=== PATIENT | female | born 1990 | race Hispanic/Latino ===

== ENCOUNTER 2021-03-24 12:22 | Observation (INO) | payer MEDICAID ==
[~2021-03-24] VITALS: Ht 165.1 cm; Wt 124.7 kg
[~2021-03-24 12:22] MED LIST: OMEG-116 PO; PREN1TAB80 PO
[2021-03-24 13:53] LABS: APPEARANCE,URINE Clear (CLEAR); BILIRUBIN,URINE Negative (NEGATIVE); COLOR,URINE Yellow (YELLOW); GLUCOSE, URINE (UA) Negative (NEGATIVE); KETONES,URINE Negative (NEGATIVE); LEUKOCYTE ESTERASE ,URINE Negative (NEGATIVE); NITRATE,URINE Negative (NEGATIVE); OCCULT BLOOD,URINE Trace (NEGATIVE); PH,URINE 6.5 (5.0-8.0); PROTEIN,URINE Negative (NEGATIVE); UROBILINOGEN,URINE 0.2 mg/dL (0.2-1.0)
[2021-03-24 13:55] LABS: BACTERIA,URINE Rare /HPF (None Seen); RBC,URINE 0-1 /HPF (0-1); SQUAMOUS EPITHELIAL CELL,UR Rare /HPF (0-2); WBC,URINE 0-1 /HPF (0-1)
[2021-03-24 14:25] LABS: BASOPHILS % (AUTO) 0.4 % (0.0-5.0); EOSINOPHILS % (AUTO) 0.6 % (0.0-8.0); HEMATOCRIT 36.4 % (36-48); LYMPHOCYTES % (AUTO) 26.8 % (21.0-51.0); MEAN CORPUSCULAR HGB CONC 34.9 g/dL (32.0-36.0); MEAN CORPUSCULAR VOLUME 85.8 fL (79-99); MONOCYTES % (AUTO) 7.6 % (3.0-13.0); NEUTROPHILS % (AUTO) 64.2 % (40.0-77.0); PLATELET COUNT (AUTO) 232 K/uL (130-400); RED BLOOD CELL COUNT(AUTO) 4.24 MIL/uL (4.00-5.50); WHITE BLOOD COUNT (AUTO) 6.9 K/uL (4.8-10.8)
[2021-03-24 14:31] LABS: CREATININE 0.6 mg/dL (0.5-1.5); INR 0.93 (0.85-1.15); PROTHROMBIN TIME 10.2 SEC (9.6-11.6)
[2021-03-24 14:33] LABS: PARTIAL THROMBOPLASTIN TIME 24.1 SEC (26.3-35.5)
[2021-03-24 14:37] LABS: ALBUMIN 2.8 g/dL (3.5-5.0); BILIRUBIN,TOTAL 0.2 mg/dL (0.2-1.0); TOTAL PROTEIN, SERUM 6.7 g/dL (6.0-8.3); URIC ACID 3.4 mg/dL (2.6-7.2)
== END 2021-03-24 15:15 | disposition home or self-care (01) ==
LOC: LDH 12:22
PROVIDERS: ADMIT Obstetrics & Gynecology; ATTEND Obstetrics & Gynecology
DX: O26.893 Other specified pregnancy related conditions, third trimester (principal); R03.0 Elevated blood-pressure reading, without diagnosis of hypertension; R60.0 Localized edema; Z3A.36 36 weeks gestation of pregnancy
CPT/HCPCS: 36415; 76805; 80053; 81001; 84550; 85025; 85384; 85610; 85730; A4351; G0378 ×3; G0379

== ENCOUNTER 2021-04-02 13:42 | Inpatient (IN) | payer MEDICAID ==
[~2021-04-02] VITALS: Ht 165.1 cm; Wt 122.5 kg
[2021-04-02 14:16] LABS: APPEARANCE,URINE Clear (CLEAR); BILIRUBIN,URINE Negative (NEGATIVE); COLOR,URINE Yellow (YELLOW); GLUCOSE, URINE (UA) Negative (NEGATIVE); KETONES,URINE Negative (NEGATIVE); LEUKOCYTE ESTERASE ,URINE Negative (NEGATIVE); NITRATE,URINE Negative (NEGATIVE); OCCULT BLOOD,URINE Negative (NEGATIVE); PH,URINE 6.5 (5.0-8.0); PROTEIN,URINE Trace mg/dL (NEGATIVE); UROBILINOGEN,URINE 0.2 mg/dL (0.2-1.0)
[2021-04-02 14:33] LABS: BACTERIA,URINE Few /HPF (None Seen); RBC,URINE 0-1 /HPF (0-1); SQUAMOUS EPITHELIAL CELL,UR Moderate /HPF (0-2); WBC,URINE 0-1 /HPF (0-1)
[2021-04-02] MEDS: LACTATED RINGERS 1000ML 1,000 ML IV SCH ×2 (15:00→23:42)
[2021-04-02] MEDS ORDERED: METOCLOPRAMIDE 10 MG/2 ML VIAL IVP PRN (15:00)
[2021-04-02] MEDS ORDERED: CALDOLOR 800MG+NS 250ML 250 ML IV PRN (15:00)
[2021-04-02] MEDS ORDERED: CEFAZOLIN SODIUM 1 GM VIAL IVP PRN (15:00)
[2021-04-02 15:13] LABS: HEMATOCRIT 34.4 % (36-48); MEAN CORPUSCULAR HEMOGLOBIN 29.9 pg (27.0-33.0); MEAN CORPUSCULAR HGB CONC 33.1 g/dL (32.0-36.0); MEAN CORPUSCULAR VOLUME 90.3 fL (79-99); RED BLOOD CELL COUNT(AUTO) 3.81 MIL/uL (4.00-5.50); WHITE BLOOD COUNT (AUTO) 5.8 K/uL (4.8-10.8)
[2021-04-02 15:25] LABS: CREATININE 0.7 mg/dL (0.5-1.5)
[2021-04-02 15:26] LABS: INR 0.94 (0.85-1.15); PROTHROMBIN TIME 10.3 SEC (9.6-11.6)
[2021-04-02 15:30] LABS: ALBUMIN 2.6 g/dL (3.5-5.0); BILIRUBIN,TOTAL 0.2 mg/dL (0.2-1.0); TOTAL PROTEIN, SERUM 6.2 g/dL (6.0-8.3)
[2021-04-02] MEDS ORDERED: MORPHINE PF 100MG/10ML AMP IV ONE (16:59)
[2021-04-02] MEDS ORDERED: FENTANYL CITRATE PF 50 MCG/1 ML 2ML VIAL ONE ×2 (16:59→17:32)
[2021-04-02] MEDS ORDERED: ONDANSETRON 4MG INJ ONE (17:30)
[2021-04-02] MEDS ORDERED: METOCLOPRAMIDE 10 MG/2 ML VIAL ONE (17:56)
[2021-04-02] MEDS ORDERED: PHENYLEPHRINE HCL 10 MG/ML 1ML VIAL IV ONE (17:56)
[2021-04-02] MEDS ORDERED: OXYTOCIN-LR 20 UNITS/1000 ML 1,000 ML IV PRN (18:00)
[2021-04-02] MEDS ORDERED: MEPERIDINE-PF 75 MG/ML SYG IM PRN (18:00)
[2021-04-02] MEDS ORDERED: PROMETHAZINE HCL 25 MG/ML 1ML AMPULE IM PRN (18:00)
[2021-04-02] MEDS ORDERED: DEXTROSE 5 %-0.45 % NACL 1,000 ML IV PRN (18:00)
[2021-04-02] MEDS ORDERED: 0.9%NACL 10ML VIAL IVP PRN (18:00)
[2021-04-02] MEDS ORDERED: ONDANSETRON 4MG INJ IVP PRN (19:30)
[2021-04-02] MEDS ORDERED: DiphenhydrAMINE HCL 50 MG/ML VIAL IVP PRN (19:30)
[2021-04-02] MEDS ORDERED: EPHEDRINE SULFATE 50 MG/ML AMPULE IVP PRN (19:30)
[2021-04-02] MEDS ORDERED: NALOXONE HCL 0.4 MG/1 ML ML IVP PRN ×3 (19:30)
[2021-04-02] MEDS ORDERED: LORATADINE 10 MG TABLET PO PRN (19:30)
[2021-04-02 20:20] VITALS: BP 136/88
[2021-04-02 22:21] VITALS: BP 123/66
[2021-04-02 22:55] VITALS: BP 137/83
[2021-04-03 01:04] LABS: RAPID PLASMA REAGIN NONREACTIVE (NONREACTIVE)
[2021-04-03] MEDS: CALDOLOR 800MG+NS 250ML 250 ML IV SCH ×2 (02:01→10:26)
[2021-04-03 02:43] VITALS: BP 129/71
[2021-04-03] MEDS ORDERED: MEASLES/MUMPS/RUBELLA VACCINE, LIVE 0.5 ML/VIAL SQ ONE (06:30)
[2021-04-03] MEDS ORDERED: DIPH,PERTUSS(ACELL),TET VAC/PF 0.5 ML VIAL IM ONE (06:30)
[2021-04-03 07:04] VITALS: BP 142/91
[2021-04-03 07:11] LABS: HEMATOCRIT 32.4 % (36-48); MEAN CORPUSCULAR HGB CONC 34.3 g/dL (32.0-36.0); MEAN CORPUSCULAR VOLUME 87.6 fL (79-99); RED BLOOD CELL COUNT(AUTO) 3.7 MIL/uL (4.00-5.50); RED CELL DISTRIBUTION WIDTH 13.8 % (11.0-15.5); WHITE BLOOD COUNT (AUTO) 7.1 K/uL (4.8-10.8)
[2021-04-03] MEDS: SIMETHICONE 80 MG TAB.CHEW PO PRN ×2 (09:00→19:53)
[2021-04-03] MEDS ORDERED: ACETAMINOPHEN 500 MG TABLET PO PRN (09:00)
[2021-04-03] MEDS ORDERED: HYDROCODONE/ACETAMINOPHEN 5/325 MG TAB PO PRN (09:00)
[2021-04-03] MEDS: DOCUSATE SODIUM 100 MG CAP PO SCH ×2 (09:00→19:54)
[2021-04-03] MEDS ORDERED: BISACODYL 10 MG SUPP.RECT RC PRN (09:00)
[2021-04-03] MEDS ORDERED: ACETAMINOPHEN WITH CODEINE 1 TAB TAB PO PRN (09:00)
[2021-04-03 11:00] VITALS: BP 144/92
[2021-04-03 16:07] VITALS: BP 127/84
[2021-04-03] MEDS: IBUPROFEN 800 MG TAB PO SCH (18:04)
[2021-04-03 19:17] VITALS: BP 137/90
[2021-04-03 23:45] VITALS: BP 134/83
[2021-04-04] MEDS: IBUPROFEN 800 MG TAB PO SCH ×2 (02:02→08:27)
[2021-04-04 03:28] VITALS: BP 139/69
[2021-04-04 07:10] VITALS: BP 129/84
[2021-04-04] MEDS: DOCUSATE SODIUM 100 MG CAP PO SCH (08:24)
[2021-04-04] MEDS: SIMETHICONE 80 MG TAB.CHEW PO PRN (08:24)
[2021-04-04] MEDS ORDERED: DOCU-116 PO (10:59)
[2021-04-04] MEDS ORDERED: IBUP-2077 PO (11:00)
[2021-04-04] MEDS ORDERED: FERR-82 PO (11:01)
[2021-04-04] MEDS ORDERED: ACET1TAB25 PO (11:01)
[2021-04-04 11:48] VITALS: BP 129/74
[2021-04-04 15:09] LABS: HEPATITIS Bs ANTIGEN SCREEN P Negative (Negative)
== END 2021-04-04 13:00 | disposition home or self-care (01) | DRG 540 ==
LOC: EDH 13:42 → LDH 13:57 → OBSVTOIN 13:57 → INTOOBSV 13:57 → WSH 20:15
PROVIDERS: ADMIT Obstetrics & Gynecology; ATTEND Obstetrics & Gynecology
PROC: 3E0234Z Introduction of Serum, Toxoid and Vaccine into Muscle, Percutaneous Approach (ICD-10-PCS; 2021-04-02)
PROC: 3E0134Z Introduction of Serum, Toxoid and Vaccine into Subcutaneous Tissue, Percutaneous Approach (ICD-10-PCS; 2021-04-02)
PROC: 10D00Z1 Extraction of Products of Conception, Low, Open Approach (ICD-10-PCS; principal; 2021-04-02 17:00)
DX: O34.211 Maternal care for low transverse scar from previous cesarean delivery (principal); E66.01 Morbid (severe) obesity due to excess calories; O99.214 Obesity complicating childbirth; Z3A.38 38 weeks gestation of pregnancy; Z37.0 Single live birth; O69.81X0 Labor and delivery complicated by cord around neck, without compression, not applicable or unspecified; Z23 Encounter for immunization
CPT/HCPCS: 36415; 59510; 80053; 81001; 84550; 85027; 85384; 85610; 85730; 86592; 86701; 86850; 86900; 86901; 87340; 87390; 90707; 90715; A4344; G0378; J0690; J1741; J2175; J2274; J2370; J2405; J2550; J2590; J2765; J3010; J7120

== ENCOUNTER 2023-03-03 18:18 | Observation (INO) | payer MEDICAID ==
[~2023-03-03] VITALS: Ht 162.6 cm; Wt 121.6 kg
[~2023-03-03 18:18] MED LIST changes: +ACET-2079 PO; +DOCU-116 PO; +IBUP-2077 PO; -OMEG-116 PO
[2023-03-03 18:24] VITALS: BP 148/79; PULSE 106; RESP 20
[2023-03-03 18:50] LABS: RAPID GROUP A STREP negative (NEGATIVE)
[2023-03-03] MEDS ORDERED: LACTATED RINGERS 1000ML 1,000 ML IV PRN (19:00)
[2023-03-03 19:03] LABS: INFLUENZA TYPE A Negative For Type A (NEGATIVE); INFLUENZA TYPE B Negative For Type B (NEGATIVE); SARS-CoV-2, RNA, NAAT NEGATIVE SARS CoV-2 (NEGATIVE)
[2023-03-03 19:06] LABS: APPEARANCE,URINE CLEAR (CLEAR); BILIRUBIN,URINE NEGATIVE (NEGATIVE); COLOR,URINE LIGHT-YELLOW (YELLOW); GLUCOSE, URINE (UA) NEGATIVE (NEGATIVE); KETONES,URINE 20 mg/dL (NEGATIVE); LEUKOCYTE ESTERASE ,URINE NEGATIVE Leu/uL (NEGATIVE); NITRATE,URINE NEGATIVE (NEGATIVE); OCCULT BLOOD,URINE NEGATIVE (NEGATIVE); PH,URINE 6.5 (5.0-8.0); PROTEIN,URINE NEGATIVE (NEGATIVE); UROBILINOGEN,URINE 0.2 mg/dL (0.2-1.0)
[2023-03-03 19:08] LABS: ADD UA MICROSCOPIC YES
[2023-03-03 19:13] LABS: BACTERIA,URINE MOD /HPF (None Seen); MUCUS,URINE RARE LPF (None Seen); RBC,URINE 0-1 /HPF (0-1); SQUAMOUS EPITHELIAL CELL,UR MOD /HPF (0-2)
[2023-03-03 19:15] LABS: AMPHET/METH SCREEN,URINE NEGATIVE (NEGATIVE); BARBITURATE SCREEN, URINE NEGATIVE (NEGATIVE); BENZODIAZEPINES SCREEN,URINE NEGATIVE (NEGATIVE); CANNABINOID SCREEN,URINE NEGATIVE (NEGATIVE); COCAINE SCREEN,URINE NEGATIVE (NEGATIVE); OPIATE SCREEN,URINE NEGATIVE (NEGATIVE); PHENCYCLIDINE SCREEN,URINE NEGATIVE (NEGATIVE)
[2023-03-03] MEDS ORDERED: AZITHROMYCIN 250 MG TABLET PO ONE (20:00)
[2023-03-03] MEDS ORDERED: GUAIFENESIN-CODEINE 5 ML SYRUP PO ONE ×3 (20:00→20:30)
[2023-03-03] MEDS ORDERED: ACETAMINOPHEN 500 MG TABLET ONE (21:39)
[2023-03-03] MEDS ORDERED: ACETAMINOPHEN 1,000 MG/100 ML VIAL IV ONE (22:00)
[2023-03-03] MEDS ORDERED: ACETAMINOPHEN 500 MG TABLET PO ONE (22:30)
[2023-03-03 22:57] LABS: BASOPHILS # (AUTO) 0.02 K/uL (0.00-0.20); BASOPHILS % (AUTO) 0.2 % (0.0-5.0); EOSINOPHILS # (AUTO) 0.03 K/uL (0.00-0.70); EOSINOPHILS % (AUTO) 0.3 % (0.0-8.0); HEMATOCRIT 34.7 % (36-48); IMMATURE GRANULOCYTE ABSOLUTE 0.05 K/uL (0-1); LYMPHOCYTES # (AUTO) 1.3 K/uL (1.0-4.8); LYMPHOCYTES % (AUTO) 12.6 % (21.0-51.0); MEAN CORPUSCULAR HEMOGLOBIN 30.9 pg (27.0-33.0); MEAN CORPUSCULAR HGB CONC 34.6 g/dL (32.0-36.0); MEAN CORPUSCULAR VOLUME 89.4 fL (79-99); MONOCYTES # (AUTO) 0.4 K/uL (0.1-1.0); NEUTROPHILS # (AUTO) 8.7 K/uL (1.8-7.7); NEUTROPHILS % (AUTO) 82.4 % (40.0-77.0); PLATELET COUNT (AUTO) 175 K/uL (130-400); RED BLOOD CELL COUNT(AUTO) 3.88 MIL/uL (4.00-5.50); WHITE BLOOD COUNT (AUTO) 10.6 K/uL (4.8-10.8)
[2023-03-03 23:19] LABS: POTASSIUM 3.5 mmol/L (3.5-5.1); THYROID STIMULATING HORMONE 1.02 uIU/mL (0.36-3.74)
== END 2023-03-04 00:30 | disposition home or self-care (01) ==
LOC: EDH 18:18 → LDH 18:46
PROVIDERS: ADMIT Obstetrics & Gynecology; ATTEND Obstetrics & Gynecology
DX: O36.8120 Decreased fetal movements, second trimester, not applicable or unspecified (principal); Z20.822 Contact with and (suspected) exposure to COVID-19; O26.892 Other specified pregnancy related conditions, second trimester; R09.81 Nasal congestion; R10.9 Unspecified abdominal pain; R05.9 Cough, unspecified; Z79.899 Other long term (current) drug therapy; Z3A.26 26 weeks gestation of pregnancy
CPT/HCPCS: 96360; 84443; 80051; 80305; 85025; 87880; 87804 ×2; 81001; 36415; 87635; 93005; G0378 ×6; G0379